=== PATIENT | male | born 1930 | race Caucasian/White ===

== ENCOUNTER 2016-05-19 06:57 | Observation (INO) ==
[2016-05-19] MEDS ORDERED: *HR* HYDROmorphone (PF) 1 MG/ML SYRINGE IVP ONE ×2 (07:19→08:38)
[2016-05-19] MEDS ORDERED: 0.9 % Sodium Chloride 1,000 ML IVC ONE (07:19)
[2016-05-19] MEDS ORDERED: Ondansetron 4 MG/2 ML VIAL IVP ONE ×3 (07:19→08:38)
--- NOTE | 2016-05-19 07:20 | Emergency Department Note ---
Disposition Clinical Impression: Acute on chronic pancreatitis Intractable nausea and vomiting Qualifiers: Vomiting type: unspecified Qualified Code(s): R11.2 - Nausea with vomiting, unspecified Abdominal pain Qualifiers: Abdominal location: generalized Qualified Code(s): R10.84 - Generalized abdominal pain Disposition: Admitted As Inpatient Condition: Fair Time of Disposition: 08:54 Abdominal Pain HPI - General Chief Complaint: ED Abdominal Pain Stated Complaint: abd pain Time Seen by Provider: 05/19/16 07:04 Source: patient, family, EMS Mode of arrival: EMS Limitations: no limitations Nursing Notes Reviewed: Yes Vital Signs Reviewed: Yes - History of Present Illness HPI Narrative: 86-year-old male history of hypertension, hx of cholecystectomy, history of pancreatitis, presents with epigastric abdominal pain,x 3 days, worse, 10 out of 10, has been worse crampy aching with radiation to his back. Patient has tried pain medicine at home and Tylenol with no relief of symptoms. +N/V denies f/c/weight loss. Newly started Januvia two months ago, afraid of medication visual display associate effect. Pt Subjective Complaint: abdominal pain Onset (ago): day(s) (3) Location: epigastric Pain Scale: 10 Quality: cramping, aching, sharp Radiation: back Improves with: nothing Worsens with: eating, vomiting Associated symptoms: Reports: nausea, vomiting. Denies: diarrhea, fever, chills , dysuria, hematemesis Treatments prior to arrival: none - Related Data Allergies Allergy/AdvReac Type Severity Reaction Status Date / Time aspirin [ASA] AdvReac See Verified 05/19/16 07:00 Comments All systems ED: reviewed and negative except as stated. Constitutional: Denies: fever Cardiovascular: Denies: chest pain, palpitations Respiratory: Denies: cough, dyspnea Gastrointestinal: Reports: as per HPI, abdominal pain, nausea. Denies: vomiting Genitourinary: Denies: urgency, dysuria Musculoskeletal: Denies: back pain, neck pain Integumentary: Denies: rash Neurological: Denies: headache, weakness Psychiatric: Denies: anxiety, depression Abdominal Pain PMH - Past Medical History Medical history: Reports: diabetes, hypertension, other Male Surgical History: Reports: cholecystectomy, other Psychiatric history: Reports: no psych history - Social History Smoking status: Never smoker Alcohol use: Reports: none Drug use: Reports: none Physical Exam Constitutional: Elderly male appears moderately uncomfortable. Tachycardic HEENT: NCAT, sclera anicteric, PERRLA bilaterally, normal external ears bilaterally, nasal septum nondeviated, average dentition, dry mucous membranes Neck: normal inspection, neck is supple, trachea midline Resp: normal chest inspection, CTA bilaterally, no resp distress CV: Tachycardia, sinus no m/g/r GI: Moderate tenderness palpation of the epigastrium. Normal bowel sounds, soft abdomen nondistende Back: normal inspection, no tenderness to palpation Neuro: A&O3, no gross motor or sensory deficits bilaterally Skin: No rashes, skin warm, dry, intact - General Limitations: no limitations General appearance: alert, in no apparent distress Course Course Narrative: 86yom with finger tenderness, pain and epigastric pain moderately uncomfortable and tachycardic, check basic labwork lactate CT abdomen and pelvis with IV contrast, discontinue Januvia use - Reevaluation(s) Reevaluation #1: Reassessment, patient still with out of 10 pain, intractable nausea and vomiting after several doses of Zofran, did have emesis in ct scan, discussed the patient given age and comorbidities, with mild lipase elevation, will admit for intractable nausea vomiting acute pancreatitis, paged hospitalist service. Time: 08:40 Reevaluation #2: Admitted Dr Reed for intractable pain and n/v Time: 09:19 Vital Signs Temperature 0 F L 05/19/16 07:01 Pulse Rate 103 05/19/16 07:01 Respiratory Rate 17 05/19/16 07:01 Blood Pressure 161/79 05/19/16 07:01 O2 Sat by Pulse Oximetry 93 L 05/19/16 07:01 Temperature 0 F L 05/19/16 07:01 Pulse Rate 96 05/19/16 08:53 Respiratory Rate 16 05/19/16 09:07 Blood Pressure 147/83 05/19/16 09:07 O2 Sat by Pulse Oximetry 97 05/19/16 08:53 Oxygen Delivery Oxygen Delivery Nasal Cannula Abdominal Pain - MDM Narrative Medical decision making narrative: 86yom after multiple rounds of IV fluids and Dilaudid, without improvement in terms, admitted to medicine service for IV fluid rehydration, pain control - Differential Diagnosis Differential Diagnosis: Likely: abdominal pain non-specific, acute appendicitis , diverticulitis, diverticulosis, gastroenteritis, pancreatitis - Medical Records Medical records reviewed: Yes I reviewed the patient's medical records. - Lab Data Lab results reviewed: Yes I reviewed the patient's lab results. Result diagrams: 05/19/16 07:15 05/19/16 07:15 Lab Results 05/19/16 05/19/16 05/19/16 Range/Units 07:15 07:15 07:15 WBC 11.7 H (4.3-11.1) K/mcL RBC 5.22 (4.19-5.50) M/mcL Hgb 14.1 (12.9-16.9) g/dL Hct 43.4 (37.5-50.1) % MCV 83.1 (83.0-100.0) fL MCH 27.0 L (28.0-33.3) pg MCHC 32.5 (31.6-35.5) g/dL RDW 13.0 (11.5-14.5) % Plt Count 214 (140-400) K/mcL MPV 10.5 (9.4-12.4) fL Immature Gran % 0.3 (0-4) % Seg Neutrophils % 79.1 % Lymphocytes % 12.4 % Monocytes % 5.3 % Eosinophils % 2.6 % Basophils % 0.3 % Neutrophils # 9.3 H (1.6-8.9) K/mcL Lymphocytes # 1.5 (0.6-4.6) K/mcL Monocytes # 0.6 (0.0-1.3) K/mcL Eosinophils # 0.3 (0.0-0.6) K/mcL Basophils # 0.0 (0.0-0.2) K/mcL PT 12.3 H (9.4-12.1) Seconds INR 1.1 APTT 26.8 (26.0-36.0) Seconds Sodium 139 (136-145) mEq/L Potassium 4.0 (3.5-4.5) mEq/L Chloride 106 (98-109) mEq/L Carbon Dioxide 22 (19-29) mEq/L BUN 33 H (8-26) mg/dL Creatinine 1.40 H (0.72-1.25) mg/dL Est GFR ( Amer) 59 L (> 60) Est GFR (Non-Af Amer) 48 L (> 60) BUN/Creatinine Ratio 24 (6-26) Glucose 229 H (70-99) mg/dL Calculated Osmolality 303 H (280-300) Lactic Acid (0.5-2.2) mmol/L Calcium 9.1 (8.6-10.8) mg/dL Total Bilirubin 0.3 (0.2-1.2) mg/dL Direct Bilirubin 0.2 (0.0-0.5) mg/dL Indirect Bilirubin 0.1 (0.0-1.2) mg/dL AST 20 (5-34) Units/L ALT 19 (0-55) Units/L Alkaline Phosphatase 92 (38-126) Units/L Troponin I (0-0.03) ng/mL Serum Total Protein 6.6 (6.0-8.3) g/dL Albumin 3.6 (3.5-5.0) g/dL Globulin 3.0 (2.4-3.5) g/dL Albumin/Globulin Ratio 1.2 (1.1-2.2) Amylase 106 (25-125) Units/L Lipase 98 H (8-78) Units/L 05/19/16 05/19/16 Range/Units 07:15 07:15 WBC (4.3-11.1) K/mcL RBC (4.19-5.50) M/mcL Hgb (12.9-16.9) g/dL Hct (37.5-50.1) % MCV (83.0-100.0) fL MCH (28.0-33.3) pg MCHC (31.6-35.5) g/dL RDW (11.5-14.5) % Plt Count (140-400) K/mcL MPV (9.4-12.4) fL Immature Gran % (0-4) % Seg Neutrophils % % Lymphocytes % % Monocytes % % Eosinophils % % Basophils % % Neutrophils # (1.6-8.9) K/mcL Lymphocytes # (0.6-4.6) K/mcL Monocytes # (0.0-1.3) K/mcL Eosinophils # (0.0-0.6) K/mcL Basophils # (0.0-0.2) K/mcL PT (9.4-12.1) Seconds INR APTT (26.0-36.0) Seconds Sodium (136-145) mEq/L Potassium (3.5-4.5) mEq/L Chloride (98-109) mEq/L Carbon Dioxide (19-29) mEq/L BUN (8-26) mg/dL Creatinine (0.72-1.25) mg/dL Est GFR ( Amer) (> 60) Est GFR (Non-Af Amer) (> 60) BUN/Creatinine Ratio (6-26) Glucose (70-99) mg/dL Calculated Osmolality (280-300) Lactic Acid 2.6 H (0.5-2.2) mmol/L Calcium (8.6-10.8) mg/dL Total Bilirubin (0.2-1.2) mg/dL Direct Bilirubin (0.0-0.5) mg/dL Indirect Bilirubin (0.0-1.2) mg/dL AST (5-34) Units/L ALT (0-55) Units/L Alkaline Phosphatase (38-126) Units/L Troponin I 0.01 (0-0.03) ng/mL Serum Total Protein (6.0-8.3) g/dL Albumin (3.5-5.0) g/dL Globulin (2.4-3.5) g/dL Albumin/Globulin Ratio (1.1-2.2) Amylase (25-125) Units/L Lipase (8-78) Units/L - Radiology Data Radiology results reviewed: Yes I reviewed the patient's radiology results. Abdomen/Pelvis CT 05/19/16 07:32 IMPRESSION: No acute intra-abdominal or pelvic process seen. D/ / Joon Alvarez MD / Joon Alvarez MD Interpreting Provider: Joon Alvarez MD - EKG Data EKG attestation: Yes I reviewed and interpreted this EKG. EKG shows normal: sinus rhythm Rate: normal (Rate of 106 PA 156 QRS 98 QTc 435 sinus tachycardia left axis low voltage.) Felch/QRS: left axis deviation Interpretation: no acute changes, unchanged when compared to prior tracing (date ) - Core Measures AMI Core Measures Followed: No Measure Exclusions: not indicated
[2016-05-19 07:28] LABS: Basophils % 0.3 %; Eosinophils # 0.3 K/mcL (0.0-0.6); Eosinophils % 2.6 %; Hematocrit 43.4 % (37.5-50.1); Hemoglobin 14.1 g/dL (12.9-16.9); Immature Granulocytes % 0.3 % (0-4); Lymphocytes # 1.5 K/mcL (0.6-4.6); Lymphocytes % 12.4 %; Mean Corpuscular HGB Conc 32.5 g/dL (31.6-35.5); Mean Corpuscular Volume 83.1 fL (83.0-100.0); Mean Platelet Volume 10.5 fL (9.4-12.4); Monocytes # 0.6 K/mcL (0.0-1.3); Monocytes % 5.3 %; Neutrophils # 9.3 K/mcL (1.6-8.9); Platelet Count 214 K/mcL (140-400); Red Blood Count 5.22 M/mcL (4.19-5.50); Segmented Neutrophils % 79.1 %
[2016-05-19 07:34] LABS: INR 1.1; Prothrombin Time 12.3 Seconds (9.4-12.1)
[2016-05-19 07:36] LABS: Activated Partial Thrombo Time 26.8 Seconds (26.0-36.0)
[2016-05-19 07:39] LABS: Albumin 3.6 g/dL (3.5-5.0); Albumin/Globulin Ratio 1.2 (1.1-2.2); Bilirubin,Direct 0.2 mg/dL (0.0-0.5); Bilirubin,Indirect 0.1 mg/dL (0.0-1.2); Bilirubin,Total 0.3 mg/dL (0.2-1.2); Calcium 9.1 mg/dL (8.6-10.8); Total Protein 6.6 g/dL (6.0-8.3)
--- NOTE | 2016-05-19 07:44 | Emergency Department Note ---
START Narrative - START START: I examined this patient and my medical decision-making was reviewed with the DIRECTOR INTERNATIONAL/PA/Advanced Practice Nurse/Resident Physician. I agree with the documented findings, disposition and treatment plan as described except to the extent set forth below. ED attending note: Patient seen with emergency medicine resident Dr. Baig. Please see a copy of his note for details of the H&P, evaluation, management and disposition of this patient. We independently had [id number] contact with the patient Briefly: A 86-year-old male presents with epigastric pain started on Januvia which is associated with pancreatitis. Patient getting a CT lab and IV meds. Disposition pending. Patient stable
[2016-05-19] MEDS ORDERED: 0.9 % Sodium Chloride 1,000 ML ONE (08:56)
[2016-05-19] MEDS ORDERED: 0.9 % Sodium Chloride 1,000 ML IV SCH (09:00)
[2016-05-19] MEDS ORDERED: *HR* HYDROmorphone 2 MG/ML SYRINGE IVP PRN (12:10)
[2016-05-19] MEDS ORDERED: D5% in Water 1,000 ML IV PRN (12:20)
[2016-05-19] MEDS ORDERED: *HR* Dextrose 50 % in Water (Syg) 50 ML SYRINGE IVP PRN (12:20)
[2016-05-19] MEDS ORDERED: Dextrose Gel 15 GM PO PRN ×2 (12:20)
[2016-05-19] MEDS ORDERED: Naloxone 0.4 MG/ML INJ IVP PRN (12:45)
[2016-05-19] MEDS ORDERED: *HR* Morphine 2 MG/ML SYRINGE IVP PRN (12:45)
--- NOTE | 2016-05-19 12:50 | Internal Med History&Physical ---
Date of Encounter: 05/19/16 Time of Encounter: 12:30 Assessment and Plan (1) Acute on chronic pancreatitis Current visit: Yes Status: Acute 1 patient has recently been started on Januvia, he has been experiencing increasing abdominal pain nausea vomiting past 4 days. He did have a past history of pancreatitis approximately 10 years ago, however no other episodes. Lipase presently 96, LFTs are within normal limits. We will hold Januvia for now. We will treat symptomatically 2 Make patient nothing by mouth 3 continue with IV fluids 4 anti-emetics 5 Dilaudid for pain 6 we will give Protonix for possible gastritis (2) Diabetes mellitus Current visit: Yes Status: Chronic 1 patient's taking metformin and glyburide and Januvia. We will hold these for now Accu-Cheks every 6 hours due to nothing by mouth, a scale insulin as needed. Once patient is eating well increase Accu-Cheks before meals and at bedtime. 2 patient was recently placed on Januvia is experienced pancreatic symptoms, we will hold Januvia we will reevaluate antidiabetics prior to discharge 3 diabetic diet once able to eat Qualifiers: Diabetes mellitus type: type 2 Diabetes mellitus complication status: with kidney complications Diabetes mellitus complication detail: with chronic kidney disease Diabetes mellitus director long term care insulin use: without director long term care use Chronic kidney disease stage: stage 3 (moderate) Qualified Code(s): E11.22 - Type 2 diabetes mellitus with diabetic chronic kidney disease; N18.3 - Chronic kidney disease, stage 3 (moderate) (3) HTN (hypertension) Current visit: Yes Status: Chronic 1 is only stable we will continue with home medications maintain systolic less than 140 Qualifiers: Hypertension type: essential hypertension Qualified Code(s): I10 - Essential (primary) hypertension (4) CKD (chronic kidney disease), stage III Current visit: Yes Status: Acute 1 presently creatinine is 1.4 GFR is 48 and sugar patient's baseline. We will continue to monitor creatinine 2 continue with IV fluids 3 monitor intake and output 4 avoid nephrotoxins (5) DVT prophylaxis Current visit: Yes Status: Acute 1. [facility] Internal Medicine - H&P: HPI Chief complaint: epigastric pain Admitted From: Emergency Dept History of present illness: Mr. Remy is a 86 year old male past medical history of diabetes type 2 hypertension CVA CKD stage III. Information is obtained from patient and who is at bedside. According to the patient's he was recently started on Januvia has been taking it for the past 2 months she has been monitoring him since he does have a past history of pancreatitis. Apparently 10 years ago he had pancreatitis related to cholelithiasis, which resolved. He has not had any other episodes since this time. Approximately 4 days ago patient again experience some epigastric pain the pain. He described the pain as sharp radiating across the mid back there were no relieving or aggravating factors. He did take Tylenol without any relief. The pain continued and worsened.Last night he was experiencing excruciating sharp 10/10 pain with nausea vomiting feeling lightheaded and weak. He has a large bowel movement and the pain eased. He denies any fever chills chest pain shortness of breath diarrhea melena hematochezia or hematemesis. This a.m. he continued to have nausea vomiting pain and was brought to the ER for evaluation. According ER records lab work did indicate lipase was 96 LFTs were normal lactate was 2.6 WBC was 11.7 creatinine 1.40 BUN [address] of abdomen with no acute intra- abdominal pelvic process EKG was sinus rhythm with no ST-T wave abnormalities. He was given pain medicine, antiemetics as well as IV fluids Patient was admitted for further workup and evaluation. Presently the patient is sleeping arouses to verbal stimuli denies any pain at this time however he does have diffuse tenderness upon palpation. He is hemodynamically stable at this time. I reviewed this case with who agrees with plan Past Med Surg Social Fam HX - Past Medical History Medical history: diabetes, hypertension, other Psychiatric history: no psych history - Past Surgical History Surgical History: cholecystectomy - Social History Smoking Status: Never smoker Smokeless Tobacco Status: No Alcohol use: none Drug use: none - Family History Father Age: 83 Living Status: Cause of : COPD Hx Family Cardiac Disorders: No Hx Family Respiratory Disorders: Yes Hx Family Cancer: No Hx Family GI Disorders: No Hx Family Genitourinary Disorders: No Hx Family Endocrine Disorder: Yes (Diabetes) Hx Family Musculoskeletal Disorders: No Hx Family Neuromuscular Disorders: No Hx Family Neurologic Disorders: No Hx Family HEENT Disorders: No Hx Family Autoimmune Disorders: No Hx Family Reproductive Disorders: No Hx Family Psychosocial Disorders: No Hx Family Medical Disorders: No Internal Medicine - H&P: Meds Metformin [Glucophage] 500 mg PO 05/19/16 [History] Allergies aspirin [ASA] Adverse Reaction (Verified 05/19/16 07:00) See Comments All Systems PM: A 10-system review of systems was performed and is negative for pertinent findings except as documented above in the HPI. - Constitutional Constitutional: weakness - Cardiovascular Cardiovascular ROS IM: no chest pain, no diaphoresis, no dyspnea, no lightheadedness, no palpitations, no syncope - Respiratory Respiratory: no cough, no dyspnea, no wheezing, no excessive phlegm production - Gastrointestinal Gastrointestinal: abdominal pain, nausea, vomiting - Musculoskeletal Musculoskeletal ROS IM: no numbness, no tingling - Integumentary Integumentary IM: no rash, no unusual bruising - Neurological Neurological ROS: no confusion, no convulsions, no focal weakness, no numbness, no tingling, no tremor(s) - Hematologic/Lymphatic Hematologic/Lymphatic: no easy bruising - Constitutional Vitals: Temp Pulse Resp BP Pulse Ox 97.4 F L 95 16 126/74 99 05/19/16 09:36 05/19/16 09:36 05/19/16 09:36 05/19/16 09:36 05/19/16 09:36 General appearance: Present: A&O X 3, answers questions appropriately - Head Head exam: Present: atraumatic, normocephalic - Neck Neck exam general surgery: Present: supple, trachea midline. Absent: lymphadenopathy - Respiratory Respiratory exam: Present: CTAB. Absent: accessory muscle use, rales, rhonchi, wheezes - Cardiovascular Cardiovascular exam: Present: RRR, +S1, +S2. Absent: diastolic murmur, gallop, rubs, systolic murmur - GI/Abdominal GI/Abdominal exam: Present: normal bowel sounds, soft, tenderness, no peritoneal signs. Absent: distended - Extremities Exam Extremities exam: Present: warm, radial pulses palpable and symetrical. Absent : calf tenderness, cyanotic, pedal edema - Neurological Exam Neurological exam: Present: CN II-XII intact, oriented X3, no focal deficits. Absent: pronater drift, facial droop, speech deficit - Skin Skin exam: Present: dry, intact Internal Med - H&P Results - Labs CBC & Chem 7: 05/19/16 07:15 05/19/16 07:15 - Diagnostic Studies CT scan - abdomen Additional comments: Abdomen/Pelvis CT 05/19/16 07:32 IMPRESSION: No acute intra-abdominal or pelvic process seen. D/ / Joon Alvarez MD / Joon Alvarez MD Interpreting Provider: Joon Alvarez MD
[2016-05-19] MEDS: Ondansetron 4 MG/2 ML VIAL IVP PRN (13:00)
[2016-05-19] MEDS: *HR* HYDROmorphone (PF) 1 MG/ML SYRINGE IVP PRN ×2 (14:26→18:13)
[2016-05-19 15:20] LABS: Bilirubin,Urine Negative (Negative); Blood,Urine Negative (Negative); Clarity,Urine Clear (Clear); Color,Urine Yellow (Yellow); Glucose,Urine (UA) Normal (Normal); Ketones,Urine Trace mg/dL (Negative); Leukocyte Esterase,Urine Negative (Negative); Nitrite,Urine Negative (Negative); Protein,Urine Trace mg/dL (Neg-Trace); Specific Gravity,Urine > 1.030 (1.010-1.025); Urobilinogen,Urine Normal (Normal)
[2016-05-19 15:21] LABS: Bacteria,Urine None Seen per hpf (None-Few); Hyaline Casts,Urine None Seen per lpf (None-Few); RBC,Urine 0-3 per hpf (0-3); Squamous Epithelial Cell,Urine Many per lpf (None-Few)
[2016-05-19] MEDS: Pantoprazole 40 MG VIAL IVP SCH (18:13)
[2016-05-19] MEDS: Insulin LISPRO 300 UNITS/3 ML VIAL SQ SCH (18:16)
[2016-05-20] MEDS: Insulin LISPRO 300 UNITS/3 ML VIAL SQ SCH ×2 (00:33→06:20)
[2016-05-20] MEDS: *HR* HYDROmorphone (PF) 1 MG/ML SYRINGE IVP PRN (05:22)
[2016-05-20] MEDS: Ondansetron 4 MG/2 ML VIAL IVP PRN (05:22)
[2016-05-20 05:39] LABS: Basophils % 0.4 %; Eosinophils # 0.5 K/mcL (0.0-0.6); Hematocrit 35.9 % (37.5-50.1); Immature Granulocytes % 0.3 % (0-4); Lymphocytes # 1.3 K/mcL (0.6-4.6); Mean Corpuscular HGB Conc 31.5 g/dL (31.6-35.5); Mean Corpuscular Hemoglobin 26.9 pg (28.0-33.3); Mean Corpuscular Volume 85.5 fL (83.0-100.0); Mean Platelet Volume 10.8 fL (9.4-12.4); Monocytes # 0.6 K/mcL (0.0-1.3); Monocytes % 7.3 %; Neutrophils # 5.3 K/mcL (1.6-8.9); Platelet Count 176 K/mcL (140-400); Red Cell Distribution Width 12.9 % (11.5-14.5)
[2016-05-20 05:43] LABS: Hemoglobin 11.3 g/dL (12.9-16.9)
[2016-05-20 05:53] LABS: Alanine Aminotransferase 14 Units/L (0-55); Albumin 2.9 g/dL (3.5-5.0); Albumin/Globulin Ratio 1.2 (1.1-2.2); Alkaline Phosphatase 86 Units/L (38-126); Aspartate Amino Transferase 17 Units/L (5-34); BUN/Creatinine Ratio 26 (6-26); Bilirubin,Direct 0.1 mg/dL (0.0-0.5); Bilirubin,Indirect 0.2 mg/dL (0.0-1.2); Bilirubin,Total 0.3 mg/dL (0.2-1.2); Blood Urea Nitrogen 30 mg/dL (8-26); Calcium 8.1 mg/dL (8.6-10.8); Carbon Dioxide 23 mEq/L (19-29); Chloride 113 mEq/L (98-109); Globulin 2.5 g/dL (2.4-3.5); Glucose 107 mg/dL (70-99); Osmolality,Calculated 301 (280-300); Potassium 4.3 mEq/L (3.5-4.5); Sodium 142 mEq/L (136-145); Total Protein 5.4 g/dL (6.0-8.3); eGFR For African Americans > 60 (> 60); eGFR For Non-African Americans > 60 (> 60)
[2016-05-20] MEDS: Pantoprazole 40 MG VIAL IVP SCH (06:17)
[2016-05-20] MEDS ORDERED: *HR* Enoxaparin 40 MG/0.4 ML SYRINGE SQ SCH (07:00)
[2016-05-20 08:26] LABS: Amylase 72 Units/L (25-125); Lipase 46 Units/L (8-78)
--- NOTE | 2016-05-20 09:01 | Internal Med Progress Note ---
<Rico Adorno - Last Filed: 05/20/16 08:59> Date of Encounter: 05/20/16 Time of Encounter: 08:59 - Assessment and plan (1) Acute on chronic pancreatitis Status: Acute Assessment and plan: 86 y/o M presented with four days of epigastric pain. He was recently started on januvia 2 months ago. Pain was sharp radiating across mid back 10/. He also had nausea and vomiting. Lipase evelated at 96. LFT WNL. most likely 2nd to januvia. Which was held. Patient still NPO. N/V have resolved. Pain has resolved. Pain may also be 2nd to gastritis, doudenitis, peptic ulcer disease. Patients Hgb dropped by 3 points overnight from 14-11. This may partially be dilutional from reciving fluids. Patient denies melena and hematochezia. continue protonix stat stool guaic and hb/hct. Will resume diet if stool guiac negative and hg/hct stable. (2) Anemia Status: Acute Assessment and plan: acute hgb dropped from 14.1 to 11.3. plan as above. Qualifiers: Anemia type: unspecified type Qualified Code(s): D64.9 - Anemia, unspecified (3) CKD (chronic kidney disease), stage III Status: Acute Assessment and plan: improved to Scr is 1.14. This is baseline for patient. continue IVF monitor intake and output avoid nephrotoxins. (4) DVT prophylaxis Status: Acute Assessment and plan: d/c lovenox due to possible GI bleed. EPCDS (5) Intractable nausea and vomiting Status: Resolved Assessment and plan: resolved. 2nd to pancreatitis. continue zofran. Qualifiers: Vomiting type: unspecified Qualified Code(s): R11.2 - Nausea with vomiting , unspecified (6) Diabetes mellitus Status: Chronic Assessment and plan: controlled glucose level. Patient is on metformin, glyburide and januvia outpatient. These are held due to being NPO. Accu-Checks q6h. NPO until evaluated for acute anemia. patient will probably need to d/c januvia when d/c. Qualifiers: Diabetes mellitus type: type 2 Diabetes mellitus complication status: with kidney complications Diabetes mellitus complication detail: with chronic kidney disease Diabetes mellitus terminologist insulin use: without long-term use Chronic kidney disease stage: stage 3 (moderate) Qualified Code(s): E11.22 - Type 2 diabetes mellitus with diabetic chronic kidney disease; N18.3 - Chronic kidney disease, stage 3 (moderate) (7) HTN (hypertension) Status: Chronic Assessment and plan: controlled. continue home medication. Qualifiers: Hypertension type: essential hypertension Qualified Code(s): I10 - Essential (primary) hypertension - Subjective Interval history: Patient has resolution of his nausea and vomiting. He was requesting to go home , however he has had a three point drop in his hgb and will require a workup. - Constitutional Vitals: Temp Pulse Resp BP Pulse Ox 97.8 F 84 16 133/66 98 05/20/16 07:48 05/20/16 07:48 05/20/16 07:48 05/20/16 07:48 05/20/16 07:48 General appearance: Present: A&O X 3, answers questions appropriately - Head Head exam: Present: atraumatic, normocephalic - Eye Eye exam: Present: PERRL, conjuntiva pink, sclera anicteric - Neck Neck exam general surgery: Present: supple, trachea midline. Absent: lymphadenopathy - Respiratory Respiratory exam: Present: CTAB. Absent: accessory muscle use, rales, rhonchi, wheezes - Cardiovascular Cardiovascular exam: Present: RRR, +S1, +S2. Absent: diastolic murmur, gallop, rubs, systolic murmur - GI/Abdominal GI/Abdominal exam: Present: normal bowel sounds, soft, no peritoneal signs. Absent: distended, tenderness - Extremities Exam Extremities exam: Present: warm, radial pulses palpable and symetrical. Absent : calf tenderness, cyanotic, pedal edema Additional comments: b/l feet edema. - Neurological Exam Neurological exam: Present: CN II-XII intact, oriented X3, no focal deficits. Absent: motor sensory deficit (decreased sensation in feet b/l (chronic)), strengths equal and symetr throughout (2/4 weakness in b/l lower extremities ( chronic) ), pronater drift, facial droop, speech deficit - Skin Skin exam: Present: dry, intact Internal Medicine: Result - Labs CBC & Chem 7: 05/20/16 04:45 05/20/16 04:45 Labs: Short CBC 05/20/16 Range/Units 04:45 WBC 7.7 (4.3-11.1) K/mcL Hgb 11.3 L D (12.9-16.9) g/dL Hct 35.9 L (37.5-50.1) % Plt Count 176 (140-400) K/mcL Neutrophils # 5.3 (1.6-8.9) K/mcL BMP 05/20/16 04:45 Sodium 142 Potassium 4.3 Chloride 113 H Carbon Dioxide 23 BUN 30 H Creatinine 1.14 Glucose 107 H Calcium 8.1 L Liver Function 05/20/16 Range/Units 04:45 Total Bilirubin 0.3 (0.2-1.2) mg/dL Direct Bilirubin 0.1 (0.0-0.5) mg/dL AST 17 (5-34) Units/L ALT 14 (0-55) Units/L Alkaline Phosphatase 86 (38-126) Units/L Albumin 2.9 L (3.5-5.0) g/dL Urine 05/19/16 Range/Units 15:02 Urine Color Yellow (Yellow) Urine Clarity Clear (Clear) Urine pH 6.0 (5.0-8.0) pH Units Ur Specific [place] > 1.030 H (1.010-1.025) Urine Protein Trace (Neg-Trace) mg/dL Urine Glucose (UA) Normal (Normal) mg/dL - ABG Interpretation ABG results: PT/INR, D-dimer PT 12.3 Seconds (9.4-12.1) H 05/19/16 07:15 Consult Discharge Plan - Plan Instructions: Pancreatitis (DC) Additional Instructions: IF patient starts to have acute nasuea vomitting diarrhea, sob, dizziness, syncope he should immediately got to ER for evaluation. Referrals: Neymar Santo [Primary Care Provider] - (Patient was given information to call his PCP on Saturday morning to schedule a hospital f/u within 5-7 days of discharge. Thank you) <Jf Gan T - Last Filed: 05/20/16 16:41> - Constitutional Vitals: Temp Pulse Resp BP Pulse Ox 97.8 F 73 16 117/63 95 05/20/16 10:30 05/20/16 10:30 05/20/16 10:30 05/20/16 10:30 05/20/16 10:30 Internal Medicine: Result - Labs CBC & Chem 7: 05/20/16 09:21 05/20/16 04:45 Labs: Short CBC 05/20/16 05/20/16 Range/Units 04:45 09:21 WBC 7.7 (4.3-11.1) K/mcL Hgb 11.3 L D 11.5 L (12.9-16.9) g/dL Hct 35.9 L 35.8 L (37.5-50.1) % Plt Count 176 (140-400) K/mcL Neutrophils # 5.3 (1.6-8.9) K/mcL BMP 05/20/16 04:45 Sodium 142 Potassium 4.3 Chloride 113 H Carbon Dioxide 23 BUN 30 H Creatinine 1.14 Glucose 107 H Calcium 8.1 L Liver Function 05/20/16 Range/Units 04:45 Total Bilirubin 0.3 (0.2-1.2) mg/dL Direct Bilirubin 0.1 (0.0-0.5) mg/dL AST 17 (5-34) Units/L ALT 14 (0-55) Units/L Alkaline Phosphatase 86 (38-126) Units/L Albumin 2.9 L (3.5-5.0) g/dL - ABG Interpretation ABG results: PT/INR, D-dimer PT 12.3 Seconds (9.4-12.1) H 05/19/16 07:15 - Attending Attestation Details as in same day discharge summary
[2016-05-20 10:06] LABS: Hematocrit 35.8 % (37.5-50.1); Hemoglobin 11.5 g/dL (12.9-16.9)
[2016-05-20 10:33] VITALS: BP 117/63
--- NOTE | 2016-05-20 11:18 | Discharge Summary ---
<Rico Adorno - Last Filed: 05/20/16 11:10> Date of Encounter: 05/20/16 Time of Encounter: 11:10 - Discharge Diagnosis (1) Acute on chronic pancreatitis Priority: Primary Status: Acute (2) Anemia Priority: Secondary Status: Ruled-out Qualifiers: Anemia type: unspecified type Qualified Code(s): D64.9 - Anemia, unspecified (3) CKD (chronic kidney disease), stage III Priority: Secondary Status: Acute (4) DVT prophylaxis Priority: Secondary Status: Acute (5) Intractable nausea and vomiting Priority: Secondary Status: Resolved Qualifiers: Vomiting type: unspecified Qualified Code(s): R11.2 - Nausea with vomiting , unspecified (6) Diabetes mellitus Priority: Secondary Status: Chronic Qualifiers: Diabetes mellitus type: type 2 Diabetes mellitus complication status: with kidney complications Diabetes mellitus complication detail: with chronic kidney disease Diabetes mellitus usp insulin use: without usp use Chronic kidney disease stage: stage 3 (moderate) Qualified Code(s): E11.22 - Type 2 diabetes mellitus with diabetic chronic kidney disease; N18.3 - Chronic kidney disease, stage 3 (moderate) (7) HTN (hypertension) Priority: Secondary Status: Chronic Qualifiers: Hypertension type: essential hypertension Qualified Code(s): I10 - Essential (primary) hypertension - Discharge Medications Home Medications: Gabapentin [Neurontin] 600 mg PO BID 05/19/16 [History] Glimepiride [Amaryl] 4 mg PO BID 05/19/16 [History] Ibuprofen [Advil] 400 mg PO BID 05/19/16 [History] Losartan/Hydrochlorothiazide [Hyzaar 100-25 Tablet] 1 tab PO DAILY 05/19/16 [ History] Metformin [Glucophage] 1,000 mg PO BID 05/19/16 [History] Terazosin [Hytrin] 2 mg PO BID 05/19/16 [History] Allergies/Adverse Reactions: Allergies aspirin [ASA] Adverse Reaction (Verified 05/19/16 15:28) Gastrointestinal Upset Date of admission: 05/19/16 08:58 Primary care physician: Neymar Santo Discharging clinician: Rico Adorno Anticipated date of discharge: 05/20/16 - Patient Status Disposition: Home, Self-Care Condition: Fair Functional capacity at discharge: wheelchair bound Overall status at discharge: patient is progressing back to baseline - Discharge Instructions Follow Up With: Neymar Santo [Primary Care Provider] - Additional Instructions: IF patient starts to have acute nasuea vomitting diarrhea, sob, dizziness, syncope he should immediately got to ER for evaluation. - Diet and Activity Activity: increase activity as tolerated Diet: diabetic diet Hospital course: 86 y/o M presented with four days of epigastric pain, nausea, and vomiting. Pain was sharp radiating across mid back 12/18. CT abdomen was WNL. He also had nausea and vomiting. Patient has a history of gallstone pancreatitis 10 years ago. Lipase was evelated at 96. LFT WNL. He was recently started on januvia 2 months ago. Patient was admitted for acute on chronic pancreatitis. Patient was started on IVF, protonix, zofran, and dilauded for pain control. His metformin, glyburide, and Januvia were withheld. Patient was made nothing by mouth. Patient's blood sugar remained stable. Etiology most likely secondary to Januvia. With fluid administration patients hgb dropped from 14 to 11.3. Repeat hgb was 11.5. There was no evidence of bleeding on exam. In the last 24 hours patient's nausea, vomiting, epigastric pain is resolved. Lipase decreased to 46. He was restarted on regular diet and tolerated it well. Patient will be d/c with home meds except for januvia. He should follow up with PCP within the next seven days. - Time Spent with Patient Total time spent providing and/or coordinating discharge services: - Constitutional Vitals: Temp Pulse Resp BP Pulse Ox 97.8 F 73 16 117/63 95 05/20/16 10:30 05/20/16 10:30 05/20/16 10:30 05/20/16 10:30 05/20/16 10:30 General appearance: Present: A&O X 3, answers questions appropriately - Head Head exam: Present: atraumatic, normocephalic - Eye Eye exam: Present: PERRL, conjuntiva pink, sclera anicteric Pupils: Present: PERRL - Neck Neck exam general surgery: Present: supple, trachea midline. Absent: lymphadenopathy - Respiratory Respiratory exam: Present: CTAB. Absent: accessory muscle use, rales, rhonchi, wheezes - Cardiovascular Cardiovascular exam: Present: RRR, +S1, +S2. Absent: diastolic murmur, gallop, rubs, systolic murmur - GI/Abdominal GI/Abdominal exam: Present: normal bowel sounds, soft, no peritoneal signs. Absent: distended, tenderness - Extremities Exam Extremities exam: Present: warm, radial pulses palpable and symetrical. Absent : calf tenderness, cyanotic, pedal edema - Neurological Exam Neurological exam: Present: CN II-XII intact, oriented X3, no focal deficits. Absent: pronater drift, facial droop, speech deficit - Skin Skin exam: Present: dry, intact <IshHuyen hernandezaju T - Last Filed: 05/20/16 12:12> Date of admission: 05/19/16 08:58 Primary care physician: [facility] course: Mr. Remy is a 86 year old male - Time Spent with Patient Total time spent providing and/or coordinating discharge services: - Constitutional Vitals: Temp Pulse Resp BP Pulse Ox 97.8 F 73 16 117/63 95 05/20/16 10:30 05/20/16 10:30 05/20/16 10:30 05/20/16 10:30 05/20/16 10:30 - Attending Attestation I examined this patient and my medical decision-making was reviewed with the [employer]IVER/PA/Advanced Practice Nurse/Resident Physician. I agree with the documented findings, disposition and treatment plan as described except to the extent set forth below. 86-year-old male with past medical history of CKD stage III and chronic pancreatitis, diabetes mellitus. Patient was admitted for abdominal pain, intractable nausea and vomiting. 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 Encouraged Januvia, continue other diabetes medications, follow-up PCP. Rest of details as in resident's documentation.
--- NOTE | 2016-05-21 16:50 | Electrocardiograph Report ---
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
== END 2016-05-20 14:00 | disposition home or self-care (01) ==
LOC: 3ANU 06:57 → EMEROO 06:57 → 3ANU 09:01
PROVIDERS: ADMIT Internal Medicine; ATTEND Family Medicine